=== PATIENT | male | born 1995 | race Caucasian/White ===

== ENCOUNTER 2020-10-12 07:01 | Outpatient (CLI) | payer OTHER | END 2020-10-12 14:00 | disposition home or self-care (01) | LOC: SLB 07:01 → EDSTATUS 10-15 07:07 | PROVIDERS: ATTEND Orthopaedic Surgery Sports Medicine | DX: Z20.822 Contact with and (suspected) exposure to COVID-19 (principal) | CPT/HCPCS: 36415 ==